=== PATIENT | female | born 1975 | race Caucasian/White ===

== ENCOUNTER 2022-01-09 18:26 | Emergency (ER) | payer OTHER | END 2022-01-09 19:28 | disposition home or self-care (01) | LOC: NAV ERS 18:26 | DX: S40.021A Contusion of right upper arm, initial encounter (principal); E11.9 Type 2 diabetes mellitus without complications; I10 Essential (primary) hypertension; W19.XXXA Unspecified fall, initial encounter ==

== ENCOUNTER 2022-02-03 19:58 | Emergency (ER) | payer OTHER ==
[2022-02-03 20:29] LABS: Bilirubin Negative (Negative); Blood, Urine Negative (Negative); Clarity Slightly Cloudy (Clear); Glucose, Urine (Dipstick) Negative (Negative); Ketone, Urine Negative (Negative); Leukocyte Negative (Negative); Nitrite Negative (Negative); Protein, Urine (Dipstick) Negative (Neg-Trace); Urobilinogen 0.2 mg/dL (Less than 2)
[2022-02-03] MEDS ORDERED: AMOXicillin 250 MG CAP ONE (20:41)
== END 2022-02-03 20:54 | disposition home or self-care (01) ==
LOC: NAV ERS 19:58
DX: J01.00 Acute maxillary sinusitis, unspecified (principal); B96.89 Other specified bacterial agents as the cause of diseases classified elsewhere; E11.9 Type 2 diabetes mellitus without complications; E78.00 Pure hypercholesterolemia, unspecified; I10 Essential (primary) hypertension; Z79.84 Long term (current) use of oral hypoglycemic drugs; Z79.899 Other long term (current) drug therapy
CPT/HCPCS: 81003; 99284

== ENCOUNTER 2022-05-09 13:38 | Emergency (ER) | payer BC, OTHER ==
[2022-05-09] MEDS ORDERED: Ondansetron PF 4 MG/2 ML Vial ONE (14:41)
[2022-05-09] MEDS ORDERED: Sodium Chloride 0.9% 1,000 ML ONE ×2 (14:41→18:21)
[2022-05-09 14:57] LABS: #Basophils 0.1 thou/uL (0.0-0.2); #Eosinphils 0.1 thou/uL (0.0-0.7); #Lymphocytes 2.4 thou/uL (1.20-3.40); #Monocytes 0.8 thou/uL (0.11-0.59); #Neutrophils 12.9 thou/uL (1.40-6.50); %Basophils 0.7 % (0.0-1.0); %Eosinophils 0.4 % (0.0-10.0); %Lymphocytes 14.6 % (21.0-51.0); %Monocytes 4.9 % (0.0-10.0); %Neutrophils 79.4 % (42.0-75.0); Hemoglobin 15.3 g/dL (12.0-16.0); Mean Corpuscular HGB CONC 31.7 g/dL (32.0-36.0); Mean Corpuscular Hemoglobin 29.1 pg (27.0-31.0); Mean Corpuscular Volume 91.7 fl (78.0-98.0); Mean Platelet Volume 7.9 fL (7.4-10.4); Platelet Count 524 10x3/uL (130-400); RBC Distribution Width 12.4 % (11.5-14.5); Red Blood Cell (RBC) Count 5.27 mill/uL (4.20-5.40); White Blood Cell (WBC) Count 16.2 10x3/uL (4.8-10.8)
[2022-05-09 15:01] LABS: BHCG - Serum Negative (NEGATIVE); Pregs Control Bar Appear? YES (CONTROL BAR)
[2022-05-09 15:05] LABS: ALT (SGPT) 34 U/L (8-55); AST (SGOT) 37 U/L (5-34); Albumin 3.7 g/dL (3.5-5.0); Alkaline Phosphatase 79 U/L (40-110); Anion Gap 20 mmol/L (10-20); BUN (Urea Nitrogen) 16 mg/dL (7.0-18.7); Bilirubin, Total 0.4 mg/dL (0.2-1.2); Calc. Creatinine Clearance 0 mL/min (70-130); Calcium 9.6 mg/dL (7.8-10.44); Carbon Dioxide 17 mmol/L (22-29); Chloride 102 mmol/L (98-107); Estimated GFR 44; Globulin 3.5 g/dL (2.4-3.5); Glucose 256 mg/dL (70-105); Potassium 5.2 mmol/L (3.5-5.1); Protein, Total 7.2 g/dL (6.0-8.3); Sodium 134 mmol/L (136-145)
[2022-05-09 15:12] LABS: Base Excess-Venous -5.4 mmol/L (-2.0 to 3.0); CO2 Tension (PvCO2) 33.1 mmHg (42.0-51.0); Calcium, Ionized 1.08 mmol/L (1.15-1.33); Chloride 103 mmol/L (98-107); Hemoglobin - Calc 14.8 g/dL (12.0-16.0); Potassium 4.7 mmol/L (3.5-5.1); Sodium 134 mmol/L (138-145); vO2 Saturation-calc 88.8 % (60.0-85.0)
[2022-05-09 15:42] LABS: Bilirubin Moderate (Negative); Blood, Urine Negative (Negative); Glucose, Urine (Dipstick) 500 mg/dL (Negative); Ketone, Urine 15 mg/dL (Negative); Leukocyte Negative (Negative); Nitrite Negative (Negative); Protein, Urine (Dipstick) > or equal to 300 mg/dL (Neg-Trace); Urobilinogen 0.2 mg/dL (Less than 2)
[2022-05-09 15:53] LABS: Clarity Hazy (Clear); RBC/HPF 0-3 HPF (0-3); Specific Gravity, Urine 1.025 (1.002-1.036); WBC/HPF 0-3 HPF (0-3)
[2022-05-09 15:54] LABS: Bacteria/HPF 2+ HPF (None Seen); Calcium Oxalate Crystals 2+ HPF (None Seen)
[2022-05-09] MEDS ORDERED: Piperacillin/Tazobactam 4.5 GM VIAL ONE (16:37)
[2022-05-09] MEDS ORDERED: Sodium Chloride 0.9% 100 ML ONE (16:38)
[2022-05-09] MEDS ORDERED: Vancomycin HCl 500 MG VIAL ONE (17:08)
[2022-05-09] MEDS ORDERED: Vancomycin 1 GM VIAL ONE (17:09)
[2022-05-09] MEDS ORDERED: Sodium Chloride 0.9% 500 ML ONE (17:09)
[2022-05-09 17:16] LABS: SARS-CoV-2 NAA Rapid Test Not Detected (NotDetected)
[2022-05-09 17:44] LABS: Lactic Acid 3.6 mmol/L (0.5-2.2)
== END 2022-05-09 18:40 | disposition short-term general hospital (02) ==
LOC: NAV ERS 13:38
DX: A41.9 Sepsis, unspecified organism (principal); E86.0 Dehydration; E11.9 Type 2 diabetes mellitus without complications; I10 Essential (primary) hypertension; Z79.899 Other long term (current) drug therapy
CPT/HCPCS: 71045; 80053; 81003; 81015; 82010; 82330; 82803; 83605; 84703; 85025; 87040; 93005; 96361; 96365; 96367; 96375; J2405; J2543; J3370; J3490; J7030; J7050; U0002